=== PATIENT | male | born 1945 | race Caucasian/White ===

== ENCOUNTER → 2018-04-17 15:46 | Emergency (ER) | payer BC, MEDICARE ==
[~2018-04-17 15:46] MED LIST: Rabies Immune Globulin 10 ML* 150 UNIT/ML VIAL (KEDRAB) IM ONE; Rabies Vaccine (RabAvert)* 2.5 UNITS VIAL IM ONE
--- NOTE | 2018-04-17 18:03 | ED ---
Bite Injury/Animal - HPI Summary HPI Summary: Patient complains of waking up this morning with 2 small areas of redness on his left forehead. Patient concerned for possible bat bite and rabies exposure. Patient denies having seen bat in house, but states she has seen B[place]va around outside the house and has heard noises in the [place]. Denies other possible trauma as explanation for wound. Denies other symptoms, pain or injury. - History of Current Complaint Chief Complaint: EDAnimalBite Stated Complaint: POSS BAT BITE Time Seen by Provider: 04/17/18 16:36 Hx Obtained From: Patient Onset of Injury: Happened hours ago Type of Bite: Animal Has Animal Been Immunized?: No Severity Currently: None Pain Intensity: 0 Pain Scale Used: 0-10 Numeric Character: Abrasion/Laceration Associated Signs And Symptoms: Positive: Negative Animal Available for Observation: No - Allergies/Home Medications Allergies/Adverse Reactions: Allergies Allergy/AdvReac Type Severity Reaction Status Date / Time No Known Allergies Allergy Verified 04/17/18 16:05 PMH/Surg Hx/FS Hx/Imm Hx Endocrine/Hematology History: Denies: Hx Anticoagulant Therapy History: Denies: Hx Dialysis Sensory History: Denies: Hx Eye Prosthesis EENT History: Denies: Hx Deafness Neurological History: Denies: Hx Developmental Delay Psychiatric History: Denies: Hx Autism Infectious Disease History: No Infectious Disease History: Denies: Traveled Outside the [place] in Last 30 Days - Social History Alcohol Use: Daily Alcohol Amount: 1 glass wine Substance Use Type: Reports: None Smoking Status (MU): Never Smoked Tobacco Review of Systems Constitutional: Negative Eyes: Negative ENT: Negative Cardiovascular: Negative Gastrointestinal: Negative Genitourinary: Negative Musculoskeletal: Negative Skin: Negative Neurological: Negative Psychological: Normal All Other Systems Reviewed And Are Negative: Yes Physical Exam - Summary Physical Exam Summary: 2 small red dots on left side forehead at hairline. Unable to determine if puncture wounds or abrasions. Triage Information Reviewed: Yes Vital Signs On Initial Exam: Initial Vitals Temp Pulse Resp BP Pulse Ox 97.6 F 63 16 198/97 98 04/17/18 16:01 04/17/18 16:01 04/17/18 16:01 04/17/18 16:01 04/17/18 16:01 Vital Signs Reviewed: Yes Appearance: Positive: Well-Appearing Skin: Positive: Warm Head/Face: Positive: Normal Head/Face Inspection Eyes: Positive: Normal ENT: Positive: Normal ENT inspection Neck: Positive: Supple Respiratory/Lung Sounds: Positive: Clear to Auscultation Cardiovascular: Positive: Normal Abdomen Description: Positive: Nontender Musculoskeletal: Positive: Normal Neurological: Positive: Normal Psychiatric: Positive: Normal AVPU Assessment: Alert - Harley Coma Scale Best Eye Response: 4 - Spontaneous Best Motor Response: 6 - Obeys Commands Best Verbal Response: 5 - Oriented Coma Scale Total: 15 Diagnostics - Vital Signs Vital Signs Temp Pulse Resp BP Pulse Ox 04/17/18 16:01 97.6 F 63 16 198/97 98 - Laboratory Lab Statement: Any lab studies that have been ordered have been reviewed, and results considered in the medical decision making process. Bite Injury Course/Dx - Course Course Of Treatment: Patient complains of waking up this morning with 2 small areas of redness on his left forehead. Patient concerned for possible bat bite and rabies exposure. Patient denies having seen bat in house, but states she has seen [place] around outside the house and has heard noises in the [place]. Denies other possible trauma as explanation for wound. Denies other symptoms, pain or injury. Physical exam:2 small red dots on left side forehead at hairline. Unable to determine if puncture wounds or abrasions. Patient from [facility] and incident occurred in [facility] so [facility] would not advise. Attempted to contact [facility] but closed on . Emergency medical number went straight to [email or web address]. [facility] emergency number went straight to [email or web address]. Unable to contact [facility] today. Advised patient he could wait up to 48 hours after exposure and thus could contact [facility] tomorrow for recommendation. Impossible to determine if wound is bat bite or not. Patient insisted on being treated here today. Vaccine and immunoglobulin were initiated here as health Department approval was not available and patient was highly concerned and insisting on being treated. Patient will follow-up with [facility] for remainder of treatment. Patient understands and approved the plan. Vital signs within normal limits. - Diagnoses Provider Diagnosis: Animal bite Discharge - Sign-Out/Discharge Documenting (check all that apply): Patient Departure - Discharge Plan Condition: Stable Disposition: HOME Patient Education Materials: Rabies Vaccine (By injection), Rabies Immune Globulin (By injection), Rabies (ED) Referrals: No Primary Care Phys,NOPCP [Primary Care Provider] - Additional Instructions: Follow-up with [facility] for remainder of treatment. Counting today is day 0, you will need further shots on day 3, day 7 and day 14. Return to the ED for any new or worsening symptoms. - Billing Disposition and Condition Condition: STABLE Disposition: Home
[2018-04-17 19:43] VITALS: BP 176/76
== END | disposition home or self-care (01) ==
LOC: ED 15:46
DX: S01.85XA Open bite of other part of head, initial encounter (principal); W64.XXXA Exposure to other animate mechanical forces, initial encounter; Y92.9 Unspecified place or not applicable
CPT/HCPCS: 90471; 90472; 90675; 99281

== ENCOUNTER 2019-03-28 11:28 | Emergency (ER) | payer BC, MEDICARE ==
--- NOTE | 2019-03-28 12:14 | UC ---
Skin Complaint HPI - HPI Summary HPI Summary: 73 yo male presents with rash under left axilla. He tells me that he has been working on building a new house and has been sweating often. Over the last 4-5 days has noticed a red itchy and slightly burning rash to his left axilla. He has applied OTC hydrocortisone cream and anbx cream with no change. Denies injury, bug bite, fever, chills, or recent illness. - History of Current Complaint Time Seen by Provider: 03/28/19 12:14 Stated Complaint: RASH ON ARM Hx Obtained From: Patient Onset Severity: Mild Current Severity: Mild Pain Intensity: 2 Pain Scale Used: 0-10 Numeric - Allergy/Home Medications Allergies/Adverse Reactions: Allergies Allergy/AdvReac Type Severity Reaction Status Date / Time No Known Allergies Allergy Verified 03/28/19 12:23 Home Medications: Home Medications Atorvastatin* [Lipitor*] 80 mg PO DAILY 03/28/19 [History Confirmed 03/28/19] Meloxicam [Mobic] 15 mg PO DAILY 03/28/19 [History Confirmed 03/28/19] Metoprolol Succinate [Toprol Xl] 25 mg PO BID 03/28/19 [History Confirmed ] PMH/Surg Hx/FS Hx/Imm Hx Endocrine History: Dyslipidemia Cardiovascular History: Cardiac Disease, Hypertension Other History Of: Negative For: Anticoagulant Therapy - Surgical History Surgical History: Yes Surgery Procedure, Year, and Place: Open heart surgery. Right arm bone marrow transplant - Family History Known Family History: Positive: Hypertension - Social History Lives: With Family Alcohol Use: Daily Alcohol Amount: 1 glass wine Substance Use Type: None Smoking Status (MU): Never Smoked Tobacco Review of Systems All Other Systems Reviewed And Are Negative: No Constitutional: Positive: Negative Skin: Positive: Rash Eyes: Positive: Negative ENT: Positive: Negative Respiratory: Positive: Negative Cardiovascular: Positive: Negative Neurological: Positive: Negative Psychological: Positive: Negative Physical Exam - Summary Physical Exam Summary: GENERAL: NAD. WDWN. No pain distress. SKIN: LEFT AXILLA: Flat raw appearing erythema with slight odor. No drainage, open wound, or abscess NECK: Supple. Nontender. No lymphadenopathy. CHEST: No accessory muscle use. Breathing comfortably and in no distress. CV: Pulses intact. Cap refill <2seconds NEURO: Alert. PSYCH: Age appropriate behavior. Triage Information Reviewed: Yes Vital Signs: Vital Signs: Temp Pulse Resp BP Pulse Ox 98.2 F 64 18 166/69 98 03/28/19 12:15 03/28/19 12:15 03/28/19 12:15 03/28/19 12:15 03/28/19 12:15 Vital Signs Reviewed: Yes Course/Dx - Course Course Of Treatment: Suspect yeast to left axilla. Will rx for nystatin powder. - Diagnoses Provider Diagnosis: Skin yeast infection Discharge ED - Sign-Out/Discharge Documenting (check all that apply): Patient Departure All imaging exams completed and their final reports reviewed: No Studies - Discharge Plan Condition: Stable Disposition: HOME Prescriptions: Nystatin TOP POWDER* 1 applic TOPICAL BID #1 btl Patient Education Materials: Skin Yeast Infection (ED) Referrals: Rigo Chau MD [Primary Care Provider] - Additional Instructions: If you develop a fever, shortness of breath, chest pain, new or worsening symptoms - please call your PCP or go to the ED immediately. - Billing Disposition and Condition Condition: STABLE Disposition: Home
--- OUTSIDE RECORDS SUMMARY | 2019-03-28 12:15 | XMS REPORT | Continuity of Care Document ---
:1945 External Reference #:[id number] Author Name Rigo Chau MD Address [address] [place] [address] Problems Active Problems Provider Date Mixed hyperlipidemia Rigo Chau MD Onset: 10/21/2007 Coronary arteriosclerosis Rigo Chau MD Onset: 10/21/2007 Essential hypertension MARIANO Reddy Onset: 11/02/2017 Social History Type Date Description Comments Sex Unknown Tobacco Use Start: Unknown Never Smoked Cigarettes ETOH Use Consumes 1 glass of wine per day Tobacco Use Start: Unknown Patient has never smoked Recreational Drug Use Never Used Drugs Smoking Status Reviewed: 03/19/19 Patient has never smoked Seat Belt/Car Seat yes Seat Belt/Car Seat Always uses seat belt Allergies, Adverse Reactions, Alerts Description No Known Drug Allergies Medications Active Medications SIG Qnty Indications Ordering Provider Date Meloxicam 1 by mouth 90tabs Tanner 09/22/2009 15mg Tablets every day MD Sammy Atorvastatin Calcium 1 by mouth 90tabs Rigo Chau MD 80mg every day Tablets Metoprolol Tartrate 1 by mouth 180tabs Becca Polk M.D. 25mg twice a day Tablets Aspirin Adult Low Dose 1 by mouth Unknown every day-OTC 81mg Tablets Immunizations CPT Code Status Date Vaccine Lot # [id number] Given 02/23/2019 Flu/Sanofi/Fluzone Iiv3 High-Dose Age 65 And Older 64969 Given 02/17/2018 Prevnar (Pneumococcal 13/V C.Vaccine) [id number] 68714 Given 02/17/2018 Flu/Sanofi/Fluzone Iiv3 High-Dose Age 65 And [id number] Older 63261 Given 01/08/2010 Fluvirin/Trivalent Iiv3 4Yr & Older [id number] 00675 Given 02/21/2008 Pneumovax [id number] 68858 Given 02/21/2008 Fluvirin/Trivalent Iiv3 4Yr & Older [id number] 33391 Given 03/06/2003 Fluvirin/Trivalent Iiv3 4Yr & Older 80096 Given 07/26/1996 Td-Tetanus/Diphtheria /Adult (Records Only) 28877 Refused 02/17/2018 Zoster( Zostavax ) Vital Signs Date Vital Result Comment 03/19/2019 4:01pm Weight 161.12 lb Height 67 inches 5'7" BP Systolic 132 mmHg BP Diastolic 84 mmHg Heart Rate 68 /min BMI (Body Mass Index) 25.2 kg/m2 Z68.25 A, 25.0-25.9 10/24/2018 3:41pm Weight 163.00 lb Height 67 inches 5'7" BP Systolic 132 mmHg BP Diastolic 82 mmHg Heart Rate 64 /min BMI (Body Mass Index) 25.5 kg/m2 Results Test Acquired Date Facility Test Result H/L Range Note CMP 03/14/2019 None Co2 (Carbon Dioxide) 29 22-32 Na (Sodium) 140 135-145 K (Potassium) 3.9 3.5-5.0 CL (Chloride) 106 101-111 Calcium, Total 9.2 8.6-10.3 Ast (Sgot) 22 13-39 Alkaline Phosphatase 60 34-104 Bilirubin, Total 1.10 High 0.2-1.0 Glucose 88 70-100 Protein, Total 6.0 Low 6.4-8.9 BUN (Urea Nitrogen) 22 6-24 Creatinine Serum 1.11 0.67-1.17 Albumin 4.0 3.2-5.2 Alt (Centx,Sherry,[facility],Efp) 16 7-52 Alb/Glob Ratio 2.0 1-3 Z#Ratio BUN/Creat 19.8 8-20 Lipid Panel 03/14/2019 None Cholesterol, Total 155 <200 HDL Cholesterol 41.7 40-60 Low Density Lipoprotein 94 <100 Triglycerides 95 <150 Laboratory test finding 03/14/2019 None Anion Gap 5 2-11 Globulin 2.0 2-4 Procedures Date Code Description Status 03/28/2015 89564797 Colonoscopy Completed Medical Devices Description No Information Available Encounters Type Date Location Provider Dx Diagnosis Office Visit 03/19/2019 [facility] Rigo Chau, I10 Essential ( primary) 4:10p [facility] G[facility]A hypertension I25.10 Athscl heart disease of [place] coronary artery w/o ang pctrs E78.2 Mixed hyperlipidemia C61 Malignant neoplasm of prostate M54.2 Cervicalgia Z68.25 Body mass index (BMI) 25.0-25.9, adult Office Visit 10/24/2018 3:30p [facility] Rigo Chau, I10 Essential (primary) [facility] GUEVARA hypertension I25.10 Athscl heart disease of [place] coronary artery w/o ang pctrs E78.2 Mixed hyperlipidemia C61 Malignant neoplasm of prostate M54.2 Cervicalgia Z68.25 Body mass index (BMI) 25.0-25.9, adult Assessments Date Code Description Provider 03/19/2019 I10 Essential (primary) hypertension Rigo Chau MD 03/19/2019 I25.10 Atherosclerotic heart disease of [place] coronary Rigo Chau MD artery with 03/19/2019 E78.2 Mixed hyperlipidemia Rigo Chau MD 03/19/2019 C61 Malignant neoplasm of prostate Rigo Chau MD 03/19/2019 M54.2 Cervicalgia Rigo Chau MD 03/19/2019 Z68.25 Body mass index (BMI) 25.0-25.9, adult Rigo Chau MD 10/24/2018 I10 Essential (primary) hypertension Rigo Chau MD 10/24/2018 I25.10 Atherosclerotic heart disease of [place] coronary Rigo Chau MD artery with 10/24/2018 E78.2 Mixed hyperlipidemia Rigo Chau MD 10/24/2018 C61 Malignant neoplasm of prostate Rigo Chau MD 10/24/2018 M54.2 Cervicalgia Rigo Chau MD 10/24/2018 Z68.25 Body mass index (BMI) 25.0-25.9, adult Rigo Chau MD Plan of Treatment Future Appointment(s):07/10/2019 4:00 pm - Rigo Chau MD at [facility]03/19/2019 - Rigo Chau MDI10 Essential (primary) hypertensionComments:Continue current medications.Follow up:.I25.10 Atherosclerotic heart disease of [place] coronary artery withComments:Continue current medications.Follow up:.E78.2 Mixed hyperlipidemiaComments:Continue with current medications.Follow up:Followup in 3-4 months. Fasting lab 1 week before next visit.C61 Malignant neoplasm of prostateComments:FU with oncologist in [place].M54.2 CervicalgiaComments:Continue Meloxicam daily with food. PT when he is ready to proceed with that. Has order from orthopedist.Follow up:.Z68.25 Body mass index (BMI) 25.0-25.9, adultFollow up:.AllFollow up:. Functional Status Description No Information Available Mental Status Description No Information Available Referrals Description No Information Available
--- OUTSIDE RECORDS SUMMARY | 2019-03-28 12:15 | XMS REPORT | Continuity of Care Document ---
:1945 External Reference #:[id number] Author Name Rigo Chau MD Address [address] [place] [address] Problems Active Problems Provider Date Mixed hyperlipidemia [...] CPT Code Status Date Vaccine Lot # [id number] Given 02/23/2019 Flu/Sanofi/Fluzone Iiv3 High-Dose Age 65 And Older 31965 Given 02/17/2018 Prevnar (Pneumococcal 13/V C.Vaccine) [id number] 27695 Given 02/17/2018 Flu/Sanofi/Fluzone Iiv3 High-Dose Age 65 And [id number] Older 27871 Given 01/08/2010 Fluvirin/Trivalent Iiv3 4Yr & Older [id number] 42580 Given 02/21/2008 Pneumovax [id number] 82813 Given 02/21/2008 Fluvirin/Trivalent Iiv3 4Yr & Older 26742 76903 Given 03/06/2003 Fluvirin/Trivalent Iiv3 4Yr & Older 86403 Given 07/26/1996 Td-Tetanus/Diphtheria /Adult (Records Only) 89634 Refused 02/17/2018 Zoster( Zostavax ) Vital Signs [...] BMI (Body Mass Index) 25.5 kg/m2 Results Description No Information Available Procedures Date Code Description Status 03/28/2015 [id number] Colonoscopy Completed Medical Devices Description No Information Available Encounters Type Date Location Provider Dx Diagnosis Office Visit 03/19/2019 Smooth Chau, I10 Essential ( primary) 4:10p [facility] GUEVARA hypertension I25.10 Athscl heart disease of [place] coronary artery w/o ang pctrs E78.2 Mixed hyperlipidemia C61 Malignant neoplasm of prostate M54.2 Cervicalgia Z68.25 Body mass index (BMI) 25.0-25.9, adult Office Visit 10/24/2018 3:30p Smooth Chau, I10 Essential (primary) [facility] GUEVARA hypertension I25.10 Athscl heart disease of [place] coronary artery w/o ang pctrs E78.2 Mixed hyperlipidemia C61 Malignant neoplasm of prostate M54.2 Cervicalgia Z68.25 Body mass index (BMI) 25.0-25.9, adult Assessments Date Code Description Provider 03/19/2019 I10 Essential (primary) hypertension Rigo Chau MD 03/19/2019 I25.10 Atherosclerotic heart disease of [place] coronary [place] Sheeba-Tu, MD artery with 03/19/2019 E78.2 Mixed hyperlipidemia Rigo Chau MD 03/19/2019 C61 Malignant neoplasm of prostate Rigo Chau MD 03/19/2019 M54.2 Cervicalgia Rigo Chau MD 03/19/2019 Z68.25 Body mass index (BMI) 25.0-25.9, adult Rigo Chau MD 10/24/2018 I10 Essential (primary) hypertension Rigo Chau MD 10/24/2018 I25.10 Atherosclerotic heart disease of [place] coronary Rigo Chau MD artery with 10/24/2018 E78.2 Mixed hyperlipidemia Rigo Chau MD 10/24/2018 C61 Malignant neoplasm of prostate Rigo Chau MD 10/24/2018 M54.2 Cervicalgia Rigo Chau MD 10/24/2018 Z68.25 Body mass index (BMI) 25.0-25.9, adult Rigo Chau MD Plan of Treatment Future Appointment(s):07/10/2019 4:00 pm - Rigo Chau MD at [facility].03/19/2019 - Rigo Chau MDI10 Essential (primary) hypertensionComments:Continue current medications.Follow up:.I25.10 Atherosclerotic heart disease of [place] coronary artery withComments:Continue current medications.Follow up:.E78.2 Mixed hyperlipidemiaComments:Continue with current medications.Follow up:Followup in 3-4 months. Fasting lab 1 week before next visit.C61 Malignant neoplasm of prostateComments:FU with oncologist in [place].M54.2 CervicalgiaComments:Continue Meloxicam daily with food. PT when he is ready to proceed with that. Has order from orthopedist.Follow up:.Z68.25 Body mass index (BMI) 25.0-25.9, adultFollow up:.AllFollow up:. Functional Status Description No Information Available Mental Status Description No Information Available Referrals Description No Information Available
[2019-03-28 12:23] VITALS: BP 166/69
== END 2019-03-28 12:31 | disposition home or self-care (01) ==
LOC: UCEAST 11:28
DX: B37.2 Candidiasis of skin and nail (principal); I10 Essential (primary) hypertension; E78.5 Hyperlipidemia, unspecified; Z79.899 Other long term (current) drug therapy
CPT/HCPCS: 99212; G0463

== ENCOUNTER 2019-04-29 07:28 | Emergency (ER) | payer BC, MEDICARE ==
--- OUTSIDE RECORDS SUMMARY | 2019-04-29 07:42 | XMS REPORT | Continuity of Care Document ---
:1945 External Reference #:[id number] Author Name DILEEP Sharp Address [address] [place] [address] Problems Active Problems Provider Date Mixed hyperlipidemia [...] Medications SIG Qnty Indications Ordering Provider Date Triamcinolone apply in a thin 15gm L23.9 Lyla Aguilar, 03/30/2019 Acetonide layer to [facility] 0.1% Ointment affected area three times a day for 7 days. Meloxicam 1 by mouth every 90tabs Tanner 09/22/2009 15mg Tablets saleem Christianson MD Atorvastatin Calcium 1 by mouth every 90tabs Rigo Chau MD day 80mg Tablets Metoprolol Tartrate 1 by mouth twice 180tabs Becca Polk, a day M.D. 25mg Tablets Aspirin Adult Low 1 by mouth every Unknown Dose day-OTC 81mg Tablets Immunizations CPT Code Status Date Vaccine Lot # [id number] Given 02/23/2019 Flu/Sanofi/Fluzone Iiv3 High-Dose Age 65 And Older 54190 Given 02/17/2018 Prevnar (Pneumococcal 13/V C.Vaccine) [id number] 40219 Given 02/17/2018 Flu/Sanofi/Fluzone Iiv3 High-Dose Age 65 And [id number] Older 29247 Given 01/08/2010 Fluvirin/Trivalent Iiv3 4Yr & Older [id number] 08212 Given 02/21/2008 Pneumovax [id number] 39300 Given 02/21/2008 Fluvirin/Trivalent Iiv3 4Yr & Older [id number] 35344 Given 03/06/2003 Fluvirin/Trivalent Iiv3 4Yr & Older 57060 Given 07/26/1996 Td-Tetanus/Diphtheria /Adult (Records Only) 45144 Refused 02/17/2018 Zoster( Zostavax ) Vital Signs Date Vital Result Comment 03/30/2019 2:51pm Weight 166.25 lb Height 66.5 inches 5'6.50" BP Systolic 124 mmHg BP Diastolic 80 mmHg Body Temperature 98.3 F Heart Rate 80 /min BMI (Body Mass Index) 26.4 kg/m2 03/19/2019 4:01pm Weight 161.12 lb Height 67 inches 5'7" BP Systolic 132 mmHg BP Diastolic 84 mmHg Heart Rate 68 /min BMI (Body Mass Index) 25.2 kg/m2 Z68.25 A, 25.0-25.9 Results Test Acquired Date Facility Test Result [...] 2-4 Procedures Date Code Description Status 03/28/2015 [id number] Colonoscopy Completed Medical Devices Description No Information Available Encounters Type Date Location Provider Dx Diagnosis Office Visit 03/30/2019 [facility] Lyla Aguilar, L23.9 Allergic contact 1:40p [employer] dermatitis, unspecified cause Z68.26 Body mass index (BMI) 26.0-26.9, adult Office Visit 03/19/2019 4:10p [facility] Rigo Chau, I10 Essential (primary) Physicians Kr[facility]f GUEVARA hypertension I25.10 Athscl heart disease of [place] coronary artery w/o ang pctrs E78.2 Mixed hyperlipidemia C61 Malignant neoplasm of prostate M54.2 Cervicalgia Z68.25 Body mass index (BMI) 25.0-25.9, adult Office Visit 10/24/2018 3:30p [facility] Rigo Chau, I10 Essential (primary) Physicians Krzysztof GUEVARA hypertension I25.10 Athscl heart disease of [place] coronary artery w/o ang pctrs E78.2 Mixed hyperlipidemia C61 Malignant neoplasm of prostate M54.2 Cervicalgia Z68.25 Body mass index (BMI) 25.0-25.9, adult Assessments Date Code Description Provider 03/30/2019 L23.9 Allergic contact dermatitis, unspecified cause DILEEP Sharp 03/30/2019 Z68.26 Body mass index (BMI) 26.0-26.9, adult DILEEP Sharp 03/19/2019 I10 Essential (primary) hypertension Rigo Chau MD 03/19/2019 I25.10 Atherosclerotic heart disease of [place] Rigo Chau MD coronary artery with 03/19/2019 E78.2 Mixed hyperlipidemia Rigo Chau MD 03/19/2019 C61 Malignant neoplasm of prostate Rigo Chau MD 03/19/2019 M54.2 Cervicalgia Rigo Chau MD 03/19/2019 Z68.25 Body mass index (BMI) 25.0-25.9, adult Rigo Chau MD 10/24/2018 I10 Essential (primary) hypertension Rigo Chau MD 10/24/2018 I25.10 Atherosclerotic heart disease of [place] Rigo Chau MD coronary artery with 10/24/2018 E78.2 Mixed hyperlipidemia Rigo Chau MD 10/24/2018 C61 Malignant neoplasm of prostate Rigo Chau MD 10/24/2018 M54.2 Cervicalgia Rigo Chau MD 10/24/2018 Z68.25 Body mass index (BMI) 25.0-25.9, adult Rigo Chau MD Plan of Treatment Future Appointment(s):07/10/2019 4:00 pm - [facility] MD at [facility]03/30/2019 - Lyla Aguilar, PRODUCTION LEAD-CL23.9 Allergic contact dermatitis, unspecified causeNew Medication:Triamcinolone Acetonide 0.1 % - apply in a thin layer to affected area three times a day for 7 days.Comments: Bendaryl 50mg orally as directed.TRIAMCINOLONE ointment as Rx. Avoid the use of scented/dyed bath products and hot water exposure.Z68.26 Body mass index (BMI) 26.0-26.9, adult Functional Status Description No Information Available Mental Status Description No Information Available Referrals Description No Information Available
[2019-04-29] MEDS: Tetracaine 0.5% OPTH.SOL 4 ML* 1 DROP BTL BOTH EYES ONE ×2 (07:48→08:07)
[2019-04-29] MEDS: Fluorescein Sodium TOPICAL* 1 MG TEST STRIP OPHTHALMIC ONE ×2 (07:48→08:07)
--- NOTE | 2019-04-29 07:55 | ED ---
Throat Pain/Nasal Congestion - HPI Summary HPI Summary: 73 year old male presents to the ED with a chief complaint of right eye irritation starting yesterday afternoon. 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 He reports trying to remove the particle yesterday, but the pain increased gradually afterwards. Patient denies blurry vision. No history of eye issues. PMHx of cancer and heart disease. Tetanus 5 years ago. - History of Current Complaint Chief Complaint: EDEyeProblem Time Seen by Provider: 04/29/19 07:41 Hx Obtained From: Patient Onset/Duration: Sudden Onset, Lasting Hours Severity: Mild Cough: None - Allergies/Home Medications Allergies/Adverse Reactions: Allergies Allergy/AdvReac Type Severity Reaction Status Date / Time No Known Allergies Allergy Verified 04/29/19 07:32 PMH/Surg Hx/FS Hx/Imm Hx Endocrine/Hematology History: Denies: Hx Anticoagulant Therapy Cardiovascular History: Reports: Hx Hypertension History: Denies: Hx Dialysis Sensory History: Denies: Hx Eye Prosthesis, Hx Deafness Opthamlomology History: Denies: Hx Eye Prosthesis Neurological History: Denies: Hx Developmental Delay Psychiatric History: Denies: Hx Autism - Cancer History Cancer Type, 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 Right arm bone marrow transplant Infectious Disease History: No Infectious Disease History: Denies: Traveled Outside the [place] in Last 30 Days - Family History Known Family History: Positive: Hypertension - Social History Alcohol Use: Daily Alcohol Amount: 1 glass wine Substance Use Type: Reports: None Smoking Status (MU): Never Smoked Tobacco Review of Systems Positive: Other - eye irritation due to particle. Negative: Blurred Vision Negative: Anxious, Depressed All Other Systems Reviewed And Are Negative: Yes Physical Exam - Summary Physical Exam Summary: Constitutional: Well-developed, Well-nourished, Alert. (-) Distressed Skin: Warm, Dry HENT: Normocephalic; Atraumatic Eyes: Conjunctiva injection R eye. Corneal abrasion to the 10 oclock position of the right cornea. EOMI, PERRL. VS: 20/20 OD, 20/15 OS Neck: Musculoskeletal ROM normal neck. (-) JVD, (-) Stridor, (-) Nuchal rigidity Cardio: Rhythm regular, rate normal, Heart sounds normal; Intact distal pulses; Radial pulses are 2+ and symmetric. Pulmonary/Chest wall: Effort normal. (-) Respiratory distress, Abd: ND Musculoskeletal: (-) Edema Neuro: Alert, Oriented x3 Psych: Mood and affect Normal Triage Information Reviewed: Yes Vital Signs On Initial Exam: Initial Vitals Temp Pulse Resp BP Pulse Ox 98.0 F 69 18 189/91 96 04/29/19 07:29 04/29/19 07:29 04/29/19 07:29 04/29/19 07:29 04/29/19 07:29 Vital Signs Reviewed: Yes Procedures - Sedation Patient Received Moderate/Deep Sedation with Procedure: No Diagnostics - Vital Signs Vital Signs Temp Pulse Resp BP Pulse Ox 04/29/19 07:29 98.0 F 69 18 189/91 96 - Laboratory Lab Statement: Any lab studies that have been ordered have been reviewed, and results considered in the medical decision making process. EENT Course/Dx - Course Course Of Treatment: 73 y/o male p/w R eye pain concern for FB. - Visual acuity : OD: 20/20. OS: 20/15. EOMI. PERRL. Fluroscein exam w uptake 10 o'clock. Pain improved w tetricaine. Given erythromycin ointment. Tetanus up-to-date - Diagnoses Provider Diagnoses: Corneal abrasion, Eye pain Discharge ED - Sign-Out/Discharge Documenting (check all that apply): Patient Departure - Discharge Plan Condition: Stable Disposition: HOME Prescriptions: Erythromycin OPHTH.OINT* [Ilotycin OPHTH.OINT*] 1 applic RIGHT EYE QID 5 Days # 1 ophth.oint Patient Education Materials: Corneal Abrasion (ED) Referrals: Rigo Chau MD [Primary Care Provider] - Additional Instructions: You were seen in the emergency department for pain. He had a corneal abrasion. Please use erythromycin ointment 4 times a day for 5 days. Please follow up with your primary care doctor in next 2-3 days and return to emergency department for trouble with your vision, eye pain, worsening or concerning symptoms. It was a pleasure taking care of you today. - Billing Disposition and Condition Condition: STABLE Disposition: Home - Attestation Statements Document Initiated by Scribe: Yes Documenting Scribe: Dwayne Olivo Provider For Whom Scribe is Documenting (Include Credential): Heide So MD Scribe Attestation: IDwayne, scribed for Heide So MD on 04/29/19 at 0825. Scribe Documentation Reviewed: Yes Provider Attestation: The documentation as recorded by the scribe, Dwayne Olivo accurately reflects the service I personally performed and the decisions made by , Heide So MD Status of Scribe Document: Viewed
[2019-04-29 08:15] VITALS: BP 163/82
[2019-04-29] MEDS ORDERED: Erythromycin OPTH OINT* APPLIC OINT RIGHT EYE SCH (09:00)
== END 2019-04-29 08:13 | disposition home or self-care (01) ==
LOC: ED 07:28
DX: S05.01XA Injury of conjunctiva and corneal abrasion without foreign body, right eye, initial encounter (principal); H57.11 Ocular pain, right eye; X58.XXXA Exposure to other specified factors, initial encounter; Y93.H3 Activity, building and construction; Y92.009 Unspecified place in unspecified non-institutional (private) residence as the place of occurrence of the external cause; I10 Essential (primary) hypertension; Z79.899 Other long term (current) drug therapy
CPT/HCPCS: 99282; A9270-GY